=== PATIENT | male | born 1970 | race Caucasian/White ===

== ENCOUNTER 2021-07-04 06:28 | Observation (INO) | payer BC ==
[~2021-07-04] VITALS: Ht 177.8 cm; Wt 99.3 kg
[2021-07-04 07:10] LABS: HEMOGLOBIN 16.4 gm/dl (14.0-17.5); RED BLOOD COUNT 5.14 M/UL (4.20-5.50)
[2021-07-04 07:41] LABS: BUN/CREATININE RATIO 12 (0-10)
[2021-07-04] MEDS ORDERED: CHLORTHALIDONE50 MG PO (10:35)
[2021-07-04] MEDS ORDERED: AMLODIPINE BESY10 MG PO (10:35)
[2021-07-04] MEDS ORDERED: ATORVASTATIN CA40 MG PO (10:36)
[2021-07-04] MEDS ORDERED: FLONASE ALLER15.8 ML (10:36)
[2021-07-04] MEDS ORDERED: PROTONIX 40 MG40 M1 PO (10:36)
[2021-07-04] MEDS ORDERED: LOSARTAN POTAS100 MG PO (10:36)
[2021-07-04] MEDS ORDERED: VITAMIN D21250 MCG PO (10:36)
[2021-07-04] MEDS ORDERED: TADALAFIL10 MG PO (10:37)
[2021-07-05 06:30] LABS: HEMOGLOBIN 16.7 gm/dl (14.0-17.5); RED BLOOD COUNT 5.07 M/UL (4.20-5.50); WHITE BLOOD COUNT 8.5 K/UL (4.5-11.0)
[2021-07-05 06:51] LABS: BUN/CREATININE RATIO 16 (0-10)
[2021-07-05] MEDS ORDERED: LOPRESSOR 25 MG25 MG PO (15:18)
[2021-07-05] MEDS ORDERED: ISOSORBIDE MONO30 MG PO (15:18)
[2021-07-05] MEDS ORDERED: ASPIRIN EC81 MG PO (15:18)
[2021-07-05] MEDS ORDERED: NITROGLYCERIN0.4 MG SL (15:18)
== END 2021-07-05 17:19 | disposition home or self-care (01) ==
LOC: ER1 06:28 → CDU 09:33 → MED SURG 4 09:33
PROVIDERS: Physician Assistant Medical; ADMIT Internal Medicine
DX: R07.89 Other chest pain (principal); I10 Essential (primary) hypertension; E78.5 Hyperlipidemia, unspecified; R91.1 Solitary pulmonary nodule; F17.210 Nicotine dependence, cigarettes, uncomplicated; E55.9 Vitamin D deficiency, unspecified; K21.9 Gastro-esophageal reflux disease without esophagitis; N52.9 Male erectile dysfunction, unspecified; G89.29 Other chronic pain; M25.572 Pain in left ankle and joints of left foot; J43.9 Emphysema, unspecified; Z20.822 Contact with and (suspected) exposure to COVID-19; Z79.899 Other long term (current) drug therapy; Z82.49 Family history of ischemic heart disease and other diseases of the circulatory system
CPT/HCPCS: ECHO; 71045; 78452; 80048; 80053; 80061; 82550; 82553; 83735; 83880; 84484; 85025; 85027; 93005; 93017; 93306; 99285; A9502; G0378; J2785; Q9967; U0002